=== PATIENT | female | born 2000 | race African-American/Black ===

== ENCOUNTER 2021-12-10 17:11 | Inpatient (IN) | payer MEDICAID ==
[~2021-12-10] VITALS: Ht 152.4 cm; Wt 80.1 kg
[2021-12-10] MEDS ORDERED: PHENOBARBITAL SODIUM 130MG/ML 1ML IV STA (18:53)
[2021-12-10 19:24] LABS: BASOPHILS % 0.2 % (0.0-2.0); EOSINOPHILS % 2.1 % (0.0-5.0); HEMATOCRIT. 31.5 % (36.0-48.0); HEMOGLOBIN. 10.2 g/dL (12.0-16.0); MEAN CORPUSCULAR HEMOGLOBIN 28.4 pg (28.0-32.0); MEAN CORPUSCULAR VOLUME 87.5 fL (81.0-99.0); MONOCYTES % 5.8 % (2.0-8.0); NEUTROPHILS % 59.9 % (40.0-76.0); PLATELET 323 x1000/uL (130-400); RED CELL DISTRIBUTION WIDTH 16.3 % (11.6-14.6)
[2021-12-10 19:25] LABS: CHLORIDE 113 mEq/L (98-107)
[2021-12-10 19:27] LABS: HCG SCREEN NEGATIVE
[2021-12-10 19:32] LABS: ETHANOL BLOOD 62 mg/dL
[2021-12-10 19:34] LABS: PHENOBARBITAL 21.1 ug/mL (15.0-40.0)
[2021-12-10] MEDS ORDERED: PHENOBARBITAL IV NR ×2 (19:36→19:45)
[2021-12-10] MEDS ORDERED: SODIUM CHLORIDE 0.9% IV NR ×2 (19:36→19:45)
[2021-12-10] MEDS ORDERED: LORAZEPAM 2MG/ML CPJ IV ONE (22:00)
[2021-12-11] VITALS: BP 105/40
[2021-12-11] MEDS ORDERED: ACETAMINOPHEN 325MG TABLET PO PRN
[2021-12-11] MEDS ORDERED: DIPHENHYDRAMINE 50MG/ML VIAL IV PRN
[2021-12-11] MEDS ORDERED: ACETAMINOPHEN 650MG SUPP PR PRN ×2
[2021-12-11] MEDS ORDERED: MAGNESIUM/ALUMINUM HYDROXIDE/SIMETHICONE 30ML UDC PO PRN
[2021-12-11] MEDS ORDERED: DOCUSATE SODIUM 100MG CAPSULE PO PRN
[2021-12-11] MEDS ORDERED: CLONIDINE 0.1MG TABLET PO PRN
[2021-12-11] MEDS ORDERED: GUAIFENESIN 200MG/10ML SUGAR FREE UDC PO PRN
[2021-12-11] MEDS ORDERED: LEVE750T10 PO (00:21)
[2021-12-11] MEDS ORDERED: PHEN300C6 PO (00:21)
[2021-12-11] MEDS ORDERED: PHEN60TA PO (00:21)
[2021-12-11] MEDS ORDERED: *PATIENT'S OWN MEDICATION STORAGE XX SCH (02:30)
[2021-12-11] MEDS: ACETAMINOPHEN 325MG TABLET PO PRN ×3 (02:34→21:25)
[2021-12-11 08:00] VITALS: BP 100/60
[2021-12-11] MEDS ORDERED: LEVETIRACETAM 500 MG in SODIUM CHLORIDE 0.9% 100 ML IV SCH (08:15)
[2021-12-11] MEDS: LEVETIRACETAM 500MG PREMIX 100 ML IV SCH ×2 (08:58→21:25)
[2021-12-11] MEDS ORDERED: LORAZEPAM 2MG/ML CPJ IV NR ×2 (09:30→13:45)
[2021-12-11] MEDS ORDERED: LORAZEPAM 0.5MG TABLET PO NR (10:45)
[2021-12-11 12:00] VITALS: BP 100/66
[2021-12-11 16:00] VITALS: BP 95/60
[2021-12-11] MEDS ORDERED: PHENYTOIN SODIUM EXTENDED 100MG CAPSULE PO NR (16:00)
[2021-12-11 16:30] LABS: BASOPHILS % 0.5 % (0.0-2.0); EOSINOPHILS % 2.1 % (0.0-5.0); HEMATOCRIT. 31.7 % (36.0-48.0); HEMOGLOBIN. 10.3 g/dL (12.0-16.0); LYMPHOCYTES % 30.4 % (20.0-50.0); MEAN CORPUSCULAR HEMOGLOBIN 27.9 pg (28.0-32.0); MEAN PLATELET VOLUME 8.2 fl (7.4-10.4); PLATELET 321 x1000/uL (130-400); RED BLOOD CELL COUNT 3.69 mill/uL (4.2-5.4); RED CELL DISTRIBUTION WIDTH 16.4 % (11.6-14.6)
[2021-12-11] MEDS ORDERED: PHENYTOIN SODIUM EXTENDED 100MG CAPSULE PO SCH (17:00)
[2021-12-11 17:01] LABS: CHLORIDE 110 mEq/L (98-107)
[2021-12-11 17:37] LABS: CREATINE KINASE 68 IU/L (26-192)
[2021-12-11 20:00] VITALS: BP 107/50
[2021-12-12] VITALS: BP 87/48
[2021-12-12 00:31] VITALS: BP 103/61
[2021-12-12 04:00] VITALS: BP 91/48
[2021-12-12 08:00] VITALS: BP 105/47
[2021-12-12] MEDS ORDERED: HYDROCODONE/ACETAMINOPHEN 5/325MG TABLET PO PRN (08:45)
[2021-12-12] MEDS ORDERED: FOLIC ACID 1MG TABLET PO SCH (09:00)
[2021-12-12] MEDS ORDERED: THIAMINE HCL 100MG TABLET PO SCH (09:00)
[2021-12-12] MEDS ORDERED: MULTIVITAMINS,THER W-MINERALS TABLET PO SCH (09:00)
[2021-12-12] MEDS ORDERED: MORPHINE SULFATE 2 MG/ML CPJ (NOT FOR IM USE) IV NR (10:15)
[2021-12-12] MEDS: LEVETIRACETAM 500MG PREMIX 100 ML IV SCH (10:16)
[2021-12-12] MEDS ORDERED: NALOXONE HCL 0.4MG/ML VIAL IV PRN (10:45)
[2021-12-12] MEDS ORDERED: LORAZEPAM 2MG/ML CPJ IV PRN (10:45)
[2021-12-12 12:00] VITALS: BP 104/48
[2021-12-12] MEDS: PHENOBARBITAL 30 MG TABLET PO SCH ×2 (13:49→18:26)
[2021-12-12 16:00] VITALS: BP 102/47
[2021-12-16] MEDS ORDERED: PHEN100C4 PO (11:43)
[2021-12-16] MEDS ORDERED: KEPP500 PO (11:43)
== END 2021-12-12 20:30 | disposition left against medical advice (07) | DRG 53 ==
LOC: ER 17:11 → 7WST 22:03 → ENRESERV 22:36
PROVIDERS: ADMIT Family Medicine Adult Medicine; ATTEND Family Medicine Adult Medicine
DX: G40.909 Epilepsy, unspecified, not intractable, without status epilepticus (principal); D64.9 Anemia, unspecified; Y90.3 Blood alcohol level of 60-79 mg/100 ml; Z20.822 Contact with and (suspected) exposure to COVID-19; Z53.29 Procedure and treatment not carried out because of patient's decision for other reasons; Z59.00 Homelessness unspecified; Z88.0 Allergy status to penicillin; Z88.8 Allergy status to other drugs, medicaments and biological substances; F10.129 Alcohol abuse with intoxication, unspecified
CPT/HCPCS: 36415; 74176; 80048; 80053; 80184; 80185; 80320; 82550; 83735; 84146; 84443; 84703; 85025; 99291; J1200; J1953; J2060; J2270; J2560; J7050; G0480

== ENCOUNTER 2021-12-14 17:00 | Inpatient (IN) | payer MEDICAID ==
[~2021-12-14] VITALS: Ht 172.7 cm; Wt 71.2 kg
[~2021-12-14 17:00] MED LIST: LEVE750T10 PO; PHEN300C6 PO; PHEN60TA PO
[2021-12-14] MEDS ORDERED: LEVETIRACETAM 1000MG PREMIX 100 ML IV ONE (18:00)
[2021-12-14 19:32] LABS: BASOPHILS % 0.4 % (0.0-2.0); EOSINOPHILS % 1.5 % (0.0-5.0); HEMATOCRIT. 33.6 % (36.0-48.0); HEMOGLOBIN. 10.6 g/dL (12.0-16.0); LYMPHOCYTES % 36.9 % (20.0-50.0); MEAN CORPUSCULAR HEMOGLOBIN 27.3 pg (28.0-32.0); MEAN CORPUSCULAR VOLUME 86.3 fL (81.0-99.0); MEAN PLATELET VOLUME 8.2 fl (7.4-10.4); MONOCYTES % 6.9 % (2.0-8.0); NEUTROPHILS % 54.3 % (40.0-76.0); PLATELET 327 x1000/uL (130-400); RED BLOOD CELL COUNT 3.89 mill/uL (4.2-5.4); RED CELL DISTRIBUTION WIDTH 16.2 % (11.6-14.6)
[2021-12-14 19:44] LABS: CHLORIDE 122 mEq/L (98-107)
[2021-12-14 19:49] LABS: CLARITY URINE CLEAR (CLEAR); COLOR URINE YELLOW (YELLOW); KETONES URINE NEGATIVE (NEGATIVE); LEUKOCYTE ESTERASE URINE 1+ (NEGATIVE); NITRITE URINE NEGATIVE (NEGATIVE); OCCULT BLOOD URINE NEGATIVE (NEGATIVE); PH URINE 6.5 (4.5-8.0); PROTEIN URINE NEGATIVE (NEGATIVE); SPECIFIC GRAVITY URINE 1.005 (1.005-1.030); UROBILINOGEN URINE 0.2 E.U./dL (0.2-1.0)
[2021-12-14 19:52] LABS: ETHANOL BLOOD 40 mg/dL; PHENOBARBITAL 20.6 ug/mL (15.0-40.0); VALPROIC ACID <3.0 ug/mL ug/mL (50-100)
[2021-12-14 20:06] LABS: CARBAMAZEPINE < 0.5 ug/mL (4-12)
[2021-12-14 20:20] LABS: METHADONE URINE SCREEN NEGATIVE (NEGATIVE); OPIATES URINE SCREEN NEGATIVE (NEGATIVE); PHENCYCLIDINE URINE SCREEN NEGATIVE (NEGATIVE)
[2021-12-14 20:25] LABS: *AMPHETAMINES SCREEN URINE PRESUMTIVE POSITIVE (NEGATIVE); *BARBITURATES SCREEN URINE PRESUMTIVE POSITIVE (NEGATIVE); *BENZODIAZEPINES SCREEN URINE PRESUMTIVE POSITIVE (NEGATIVE); *COCAINE SCREEN URINE PRESUMTIVE POSITIVE (NEGATIVE); CANNABINOID URINE SCREEN PRESUMTIVE POSITIVE (NEGATIVE)
[2021-12-14] MEDS ORDERED: CEFTRIAXONE 1 G PREMIX 50 ML IV ONE (20:30)
[2021-12-14] MEDS ORDERED: POTASSIUM CHLORIDE INJ 40 MEQ in DEXT 5% WATER 250 ML IV ONE (20:30)
[2021-12-14] MEDS ORDERED: SODIUM CHLORIDE 0.9% 1,000 ML IV ONE (20:30)
[2021-12-14] MEDS ORDERED: POTASSIUM CHLORIDE 20MEQ TABLET SR PO NR (20:30)
[2021-12-14] MEDS ORDERED: LEVOFLOXACIN 500MG PREMIX 100 ML IV NR (20:45)
[2021-12-14] MEDS ORDERED: LEVETIRACETAM 500MG PREMIX 100 ML IV ONE ×2 (21:45)
[2021-12-14] MEDS: KCL 20MEQ/100ML PREMIX 100 ML IV SCH (23:18)
[2021-12-15] MEDS ORDERED: AZITHROMYCIN 500 MG TABLET PO SCH (01:00)
[2021-12-15] MEDS: KCL 20MEQ/100ML PREMIX 100 ML IV SCH ×3 (02:06→04:00)
[2021-12-15] MEDS ORDERED: PHENOBARBITAL 60MG TABLET PO SCH (06:00)
[2021-12-15] MEDS ORDERED: PHENYTOIN SODIUM EXTENDED 100MG CAPSULE PO SCH (06:00)
[2021-12-15 08:00] VITALS: BP 100/52
[2021-12-15] MEDS ORDERED: POTASSIUM CHLORIDE 20MEQ TABLET SR PO SCH (08:15)
[2021-12-15] MEDS ORDERED: LEVETIRACETAM 500MG TABLET PO SCH (09:00)
[2021-12-15 09:34] LABS: BASOPHILS % 0.8 % (0.0-2.0); EOSINOPHILS % 1.7 % (0.0-5.0); HEMATOCRIT. 34.3 % (36.0-48.0); LYMPHOCYTES % 26.9 % (20.0-50.0); MEAN CORPUSCULAR HEMOGLOBIN 28.1 pg (28.0-32.0); MEAN CORPUSCULAR VOLUME 87.1 fL (81.0-99.0); MEAN PLATELET VOLUME 8.5 fl (7.4-10.4); MONOCYTES % 9.2 % (2.0-8.0); NEUTROPHILS % 61.4 % (40.0-76.0); PLATELET 295 x1000/uL (130-400); RED BLOOD CELL COUNT 3.93 mill/uL (4.2-5.4); RED CELL DISTRIBUTION WIDTH 16.1 % (11.6-14.6)
[2021-12-15 09:39] LABS: CHLORIDE 112 mEq/L (98-107)
[2021-12-15] MEDS: PHENYTOIN SODIUM EXTENDED 100MG CAPSULE PO SCH ×2 (09:47→16:52)
[2021-12-15] MEDS: NICOTINE 7MG PATCH TD SCH (09:47)
[2021-12-15] MEDS: PHENOBARBITAL 60MG TABLET PO SCH (09:47)
[2021-12-15] MEDS: LEVETIRACETAM 500MG TABLET PO SCH ×2 (09:47→20:49)
[2021-12-15] MEDS ORDERED: ACETAMINOPHEN 325MG TABLET PO NR (10:00)
[2021-12-15] MEDS ORDERED: ACETAMINOPHEN 500MG TABLET PO NR (10:05)
[2021-12-15 12:00] VITALS: BP 90/51
[2021-12-15] MEDS ORDERED: PNEUMOCOCCAL 23-VAL P-SAC VAC 0.5 ML IM ONE (12:00)
[2021-12-15] MEDS ORDERED: INFLUENZA VACCINE 05/PF 0.5 ML SYRINGE IM ONE (12:00)
[2021-12-15 16:00] VITALS: BP 95/52
[2021-12-15] MEDS ORDERED: LORAZEPAM 2MG/ML CPJ IV NR (19:30)
[2021-12-15 20:00] VITALS: BP 109/56
[2021-12-16] VITALS: BP 96/55
[2021-12-16 08:00] VITALS: BP 99/63
[2021-12-16 10:06] LABS: HCG SCREEN NEGATIVE
[2021-12-16] MEDS: PHENOBARBITAL 60MG TABLET PO SCH (10:51)
[2021-12-16] MEDS: PHENYTOIN SODIUM EXTENDED 100MG CAPSULE PO SCH (10:51)
[2021-12-16] MEDS: LEVETIRACETAM 500MG TABLET PO SCH (10:51)
[2021-12-16] MEDS: NICOTINE 7MG PATCH TD SCH (10:52)
[2021-12-16] MEDS ORDERED: KEPP500 PO (11:43)
[2021-12-16] MEDS ORDERED: PHEN100C4 PO (11:43)
[2021-12-16] MEDS ORDERED: PHEN64.8 PO (11:43)
[2021-12-16 12:00] VITALS: BP 101/64
== END 2021-12-16 12:25 | disposition left against medical advice (07) | DRG 53 ==
LOC: ER 17:00 → MICUSO 12-15 00:44 → UNDOADMIN 12-15 00:44 → 8WST 12-15 02:17
PROVIDERS: ADMIT Family Medicine; ATTEND Family Medicine
DX: G40.401 Other generalized epilepsy and epileptic syndromes, not intractable, with status epilepticus (principal); E44.1 Mild protein-calorie malnutrition; E87.0 Hyperosmolality and hypernatremia; E83.51 Hypocalcemia; D64.9 Anemia, unspecified; E87.6 Hypokalemia; F19.10 Other psychoactive substance abuse, uncomplicated; S80.212A Abrasion, left knee, initial encounter; S80.211A Abrasion, right knee, initial encounter; W18.39XA Other fall on same level, initial encounter; F17.200 Nicotine dependence, unspecified, uncomplicated; Z91.14 Patient's other noncompliance with medication regimen; Z68.23 Body mass index [BMI] 23.0-23.9, adult; Z88.0 Allergy status to penicillin; Z91.041 Radiographic dye allergy status; Z91.010 Allergy to peanuts; Z79.899 Other long term (current) drug therapy; Y93.89 Activity, other specified; Y92.89 Other specified places as the place of occurrence of the external cause; Y99.8 Other external cause status
CPT/HCPCS: 36415; 73562; 73630; 74018; 80048; 80053; 80156; 80165; 80184; 80185; 80305; 80320; 81003; 82140; 84132; 84703; 85025; 90686; 90732; 99285; J1953; J1956; J2060; J3480; G0480